=== PATIENT | male | born 1990 | race Hispanic/Latino ===

== ENCOUNTER 2020-08-19 12:21 | Emergency (ER) | payer BC, OTHER ==
[2020-08-19] MEDS ORDERED: MECLIZINE HCL 25 MG TABLET ONE ×2 (12:33→12:36)
[2020-08-19 12:48] LABS: BASOPHILS % (AUTO) 0.4 % (0.0-5.0); EOSINOPHILS % (AUTO) 1.3 % (0.0-8.0); LYMPHOCYTES % (AUTO) 21.2 % (21.0-51.0); MEAN CORPUSCULAR HEMOGLOBIN 27.6 pg (27.0-33.0); MEAN CORPUSCULAR HGB CONC 33.8 g/dL (32.0-36.0); MEAN CORPUSCULAR VOLUME 81.6 fL (79-99); NEUTROPHILS % (AUTO) 68.5 % (40.0-77.0); PLATELET COUNT (AUTO) 280 K/uL (130-400); RED BLOOD CELL COUNT(AUTO) 5.88 MIL/uL (4.50-6.20); RED CELL DISTRIBUTION WIDTH 12.4 % (11.0-15.5); WHITE BLOOD COUNT (AUTO) 10.3 K/uL (4.8-10.8)
[2020-08-19 12:55] LABS: CREATININE 1.1 mg/dL (0.5-1.5); POTASSIUM 3.5 mmol/L (3.5-5.1)
[2020-08-19 13:04] LABS: APPEARANCE,URINE Clear (CLEAR); BILIRUBIN,URINE Negative (NEGATIVE); COLOR,URINE Yellow (YELLOW); GLUCOSE, URINE (UA) Negative (NEGATIVE); KETONES,URINE Negative (NEGATIVE); LEUKOCYTE ESTERASE ,URINE Negative (NEGATIVE); NITRATE,URINE Negative (NEGATIVE); OCCULT BLOOD,URINE Negative (NEGATIVE); PH,URINE 6.5 (5.0-8.0); PROTEIN,URINE Negative (NEGATIVE); UROBILINOGEN,URINE 0.2 mg/dL (0.2-1.0)
[2020-08-19 13:05] LABS: ALBUMIN 4.1 g/dL (3.5-5.0); BILIRUBIN,TOTAL 0.6 mg/dL (0.2-1.0); TOTAL PROTEIN, SERUM 8.1 g/dL (6.0-8.3)
== END 2020-08-19 13:46 | disposition home or self-care (01) ==
LOC: EDH 12:21
DX: R42 Dizziness and giddiness (principal); H61.23 Impacted cerumen, bilateral; I10 Essential (primary) hypertension
CPT/HCPCS: 36415; 71045; 80053; 81003; 84484; 85025; 87804; 93005

== ENCOUNTER 2023-04-27 09:44 | Emergency (ER) | payer BC ==
[~2023-04-27] VITALS: Ht 175.3 cm; Wt 108.9 kg
[2023-04-27 09:49] VITALS: BP 133/67; PULSE 83; RESP 16; O2SAT 100
[2023-04-27 09:57] LABS: APPEARANCE,URINE CLEAR (CLEAR); BILIRUBIN,URINE NEGATIVE (NEGATIVE); COLOR,URINE YELLOW (YELLOW); GLUCOSE, URINE (UA) NEGATIVE (NEGATIVE); KETONES,URINE NEGATIVE (NEGATIVE); LEUKOCYTE ESTERASE ,URINE 250 Leu/uL (NEGATIVE); NITRATE,URINE NEGATIVE (NEGATIVE); PROTEIN,URINE 20 mg/dL (NEGATIVE); UROBILINOGEN,URINE 0.2 mg/dL (0.2-1.0)
[2023-04-27 10:00] LABS: ADD UA MICROSCOPIC YES
[2023-04-27 10:11] LABS: BACTERIA,URINE FEW /HPF (None Seen); MUCUS,URINE RARE LPF (None Seen); WBC,URINE 51-100 /HPF (0-1)
[2023-04-27] MEDS ORDERED: DOXY100C5 PO (10:29)
[2023-04-27] MEDS ORDERED: CICL15CR15 TP (10:30)
[2023-04-27] MEDS ORDERED: CEFTRIAXONE 1G VIAL IM ONE (10:30)
[2023-04-28] MEDS ORDERED: AZIT250T9 PO (15:10)
[2023-04-28] MEDS ORDERED: CETI10TA87 PO (15:12)
== END 2023-04-27 10:43 | disposition home or self-care (01) ==
LOC: EDH 09:44
DX: N39.0 Urinary tract infection, site not specified (principal); L29.9 Pruritus, unspecified; I10 Essential (primary) hypertension
CPT/HCPCS: 99284; 87088; 87797; 87486; 81001; 96372; J0696

== ENCOUNTER 2023-04-28 13:19 | Emergency (ER) | payer BC ==
[~2023-04-28] VITALS: Ht 175.3 cm; Wt 108.9 kg
[~2023-04-28 13:19] MED LIST: CICL15CR15 TP; DOXY100C5 PO
[2023-04-28 13:45] VITALS: BP 150/90; PULSE 61; RESP 16; O2SAT 99
[2023-04-28 14:47] LABS: APPEARANCE,URINE CLEAR (CLEAR); BILIRUBIN,URINE NEGATIVE (NEGATIVE); COLOR,URINE COLORLESS (YELLOW); GLUCOSE, URINE (UA) NEGATIVE (NEGATIVE); KETONES,URINE NEGATIVE (NEGATIVE); LEUKOCYTE ESTERASE ,URINE 75 Leu/uL (NEGATIVE); NITRATE,URINE NEGATIVE (NEGATIVE); OCCULT BLOOD,URINE NEGATIVE (NEGATIVE); PROTEIN,URINE NEGATIVE (NEGATIVE); UROBILINOGEN,URINE 0.2 mg/dL (0.2-1.0)
[2023-04-28 14:55] LABS: ADD UA MICROSCOPIC YES
[2023-04-28 14:59] LABS: BACTERIA,URINE RARE /HPF (None Seen); MUCUS,URINE RARE LPF (None Seen)
[2023-04-28] MEDS ORDERED: AZIT250T9 PO (15:10)
[2023-04-28] MEDS ORDERED: CETI10TA87 PO (15:12)
== END 2023-04-28 15:20 | disposition home or self-care (01) ==
LOC: EDH 13:19
DX: N39.0 Urinary tract infection, site not specified (principal); I10 Essential (primary) hypertension; Z20.2 Contact with and (suspected) exposure to infections with a predominantly sexual mode of transmission
CPT/HCPCS: 81001; 87486; 87797

== ENCOUNTER 2023-05-27 17:30 | Emergency (ER) | payer BC ==
[~2023-05-27] VITALS: Ht 177.8 cm; Wt 114.3 kg
[~2023-05-27 17:30] MED LIST changes: +AZIT250T9 PO; +CETI10TA87 PO
[2023-05-27 20:06] LABS: APPEARANCE,URINE CLEAR (CLEAR); BILIRUBIN,URINE NEGATIVE (NEGATIVE); COLOR,URINE LIGHT-YELLOW (YELLOW); GLUCOSE, URINE (UA) NEGATIVE (NEGATIVE); KETONES,URINE NEGATIVE (NEGATIVE); LEUKOCYTE ESTERASE ,URINE NEGATIVE Leu/uL (NEGATIVE); NITRATE,URINE NEGATIVE (NEGATIVE); OCCULT BLOOD,URINE NEGATIVE (NEGATIVE); PH,URINE 5.5 (5.0-8.0); PROTEIN,URINE NEGATIVE (NEGATIVE); UROBILINOGEN,URINE 0.2 mg/dL (0.2-1.0)
[2023-05-27 20:07] LABS: ADD UA MICROSCOPIC NO
[2023-05-27] MEDS ORDERED: ONDANSETRON ODT 4MG TAB SL ONE (21:00)
[2023-05-27] MEDS ORDERED: CEFTRIAXONE 500MG VIAL IM SCH (21:00)
[2023-05-27] MEDS ORDERED: AZITHROMYCIN 250 MG TABLET PO ONE (21:00)
[2023-05-27 21:27] VITALS: BP 139/74; PULSE 60; RESP 18; O2SAT 99
== END 2023-05-27 22:27 | disposition home or self-care (01) ==
LOC: EDH 17:30
DX: N34.2 Other urethritis (principal); I10 Essential (primary) hypertension; Z79.899 Other long term (current) drug therapy
CPT/HCPCS: 99284; 87797; 87486; 81003; 96372; J0696

== ENCOUNTER 2023-09-20 19:57 | Emergency (ER) | payer BC, OTHER ==
[~2023-09-20] VITALS: Ht 175.3 cm; Wt 114.3 kg
[2023-09-20 20:26] VITALS: BP 121/65; PULSE 74; RESP 18; O2SAT 98
[2023-09-20] MEDS ORDERED: IBUP-2077 PO (20:47)
[2023-09-20] MEDS ORDERED: CLIN-141 PO (20:47)
[2023-09-20] MEDS: CLINDAMYCIN 150 MG CAP PO ONE (20:57)
[2023-09-20] MEDS: IBUPROFEN 800 MG TAB PO ONE (20:58)
== END 2023-09-20 21:03 | disposition home or self-care (01) ==
LOC: EDH 19:57
DX: K02.9 Dental caries, unspecified (principal); I10 Essential (primary) hypertension; Z79.899 Other long term (current) drug therapy

== ENCOUNTER 2024-02-27 15:57 | Emergency (ER) | payer BC ==
[~2024-02-27] VITALS: Ht 175.3 cm; Wt 111.6 kg
[~2024-02-27 15:57] MED LIST changes: +CLIN-141 PO; +IBUP-2077 PO
[2024-02-27 17:08] LABS: APPEARANCE,URINE CLEAR (CLEAR); BILIRUBIN,URINE NEGATIVE (NEGATIVE); COLOR,URINE LIGHT-YELLOW (YELLOW); GLUCOSE, URINE (UA) NEGATIVE (NEGATIVE); KETONES,URINE NEGATIVE (NEGATIVE); LEUKOCYTE ESTERASE ,URINE NEGATIVE Leu/uL (NEGATIVE); NITRATE,URINE NEGATIVE (NEGATIVE); OCCULT BLOOD,URINE NEGATIVE (NEGATIVE); PROTEIN,URINE NEGATIVE (NEGATIVE); UROBILINOGEN,URINE 0.2 mg/dL (0.2-1.0)
[2024-02-27 17:10] LABS: ADD UA MICROSCOPIC NO
[2024-02-27] MEDS: cefTRIAXone 1G VIAL IM ONE (18:03)
[2024-02-27] MEDS: AZITHROMYCIN 250 MG TABLET PO ONE (18:03)
[2024-02-27 19:08] VITALS: BP 158/85; PULSE 80; RESP 16; TEMP 97.8; O2SAT 97
== END 2024-02-27 19:16 | disposition home or self-care (01) ==
LOC: EDH 15:57
DX: N43.3 Hydrocele, unspecified (principal); R10.30 Lower abdominal pain, unspecified; I10 Essential (primary) hypertension; Z79.899 Other long term (current) drug therapy; Z88.1 Allergy status to other antibiotic agents
CPT/HCPCS: 99284; 87491; 87591; 81003; 76870; 96372; J0696

== ENCOUNTER 2025-02-13 13:12 | Emergency (ER) | payer BC ==
[~2025-02-13] VITALS: Ht 177.8 cm; Wt 112.5 kg
[~2025-02-13 13:12] MED LIST changes: +ATEN25TA PO; -AZIT250T9 PO; -CETI10TA87 PO; -CICL15CR15 TP; -CLIN-141 PO; -DOXY100C5 PO; -IBUP-2077 PO; +LEVO-70 PO; +LISI1TAB49 PO; +SERT-439 PO
[2025-02-13 14:09] LABS: APPEARANCE,URINE CLEAR (CLEAR); GLUCOSE, URINE (UA) NEGATIVE (NEGATIVE); LEUKOCYTE ESTERASE ,URINE NEGATIVE Leu/uL (NEGATIVE); NITRATE,URINE NEGATIVE (NEGATIVE); OCCULT BLOOD,URINE +- (TRACE) (NEGATIVE)
[2025-02-13 14:14] LABS: ADD UA MICROSCOPIC YES
--- NOTE | 2025-02-13 14:41 | ERN ---
ED Note History of Present Illness Stated Complaint: LT TESTICULAR PAIN Chief Complaint: Testicular Injury/Pain Time Seen by MD: 13:13 Time Seen by Midlevel: 13:18 Dictation: 35-YEAR-OLD MALE WITH NO PAST MEDICAL HISTORY COMING IN WITH COMPLAINTS OF LEFT TESTICULAR PAIN FOR ONE WEEK. PATIENT STATES HE WAS SEEN WHEN THE PAIN STARTED ONE WEEK AGO AT [facility] AND THEY GAVE HIM IM SHOT AND P.O. ANTIBIOTICS TO TREAT ANY STDS. STATES HE IS STILL CONTINUES WITH THE PAIN. DENIES ANY FEVER, NAUSEA, VOMITING, NO PENILE DISCHARGE, NO PENILE LESIONS, NO DYSURIA. Allergies: Coded Allergies: doxycycline (Unverified Allergy, Unknown, 02/27/24) Home Meds Active Scripts Levofloxacin (Levofloxacin) 500 Mg Tablet, 1 TAB PO DAILY for 7 Days, #7 TAB 0 Refills Prov:KEVINRASHAUN SOLO QUARRY MANAGER 05/11/24 Reported Medications Sertraline HCl (Sertraline HCl) 50 Mg Tablet, 1.5 TAB PO DAILY for anxiety 05/10/24 Lisinopril/Hydrochlorothiazide (Lisinopril-Hctz 10-12.5 mg Tab) 10 Mg-12.5 Mg Tablet, 1 TAB PO DAILY 05/10/24 Atenolol (Atenolol) 25 Mg Tablet, 1 TAB PO DAILY 05/10/24 Past Medical History Past Medical History: Hypertension, Other Additional Past Medical Hx: GASTROENTERITIS Surgical History: None Family History: Negative Social History: Negative Review of System Dictation CONSTITUTIONAL: NEGATIVE FOR FEVER,CHILLS, AND WEIGHT LOSS EYES: NEGATIVE FOR INJURY, PAIN,REDNESS, AND DISCHARGE ENT: NEGATIVE FOR INJURY,PAIN OR SWELLING CARDIOVASCULAR: NEGATIVE FOR CHEST PAIN, PALPITATIONS, AND EDEMA RESPIRATORY: NEGATIVE FOR SHORTNESS OF BREATH, COUGH, AND WHEEZING, ABDOMEN/GI: NEGATIVE FOR ABDOMINAL PAIN, NAUSEA, VOMITING, DIARRHEA, AND CONST IPATION BACK: NEGATIVE FOR INJURY AND PAIN : COMPLAINING OF LEFT TESTICULAR PAIN MS/EXTREMITY: NEGATIVE FOR INJURY AND DEFORMITY SKIN: NEGATIVE FOR RASH, AND DISCOLORATION NEURO: NEGATIVE FOR HEADACHE, WEAKNESS, NUMBNESS, TINGLING, AND SEIZURE PSYCH: NEGATIVE FOR SUICIDE IDEATION, HOMICIDAL IDEATION, AND HALLUCINATIONS Review of Systems: was completed Initial Vital Sign VS Vital Signs Date Time Temp Pulse Resp B/P (MAP) Pulse Ox O2 Delivery O2 Flow Rate FiO2 02/13/25 13:13 98.4 87 16 136/66 99 Room Air 0 02/13/25 13:45 21 Physical Exam Dictation GENERAL: AWAKE, ALERT, NAD HEAD/FACE: NORMOCEPHALIC, ATRAUMATIC EYES: PERRL, EOMI, VISION AT BASELINE ENT: ORAL CAVITY CLEAR, TMS CLEAR, NO SIGNS OF INFECTION NECK: TRACHEA MIDLINE, SUPPLE, NO NUCHAL RIGIDITY CARDIOVASCULAR: RRR, NORMAL S1/S2, NO MRGS, NO JVD RESPIRATORY: CTAB, NO RESPIRATORY DISTRESS, NO RALES OR WHEEZES ABDOMEN: SOFT, NON-TENDER, NON-DISTENDED, NORMAL BOWEL SOUNDS, NO GUARDING OR REBOUND. SKIN: WARM, DRY, NORMAL TURGOR, NO RASH MS/EXTREMITY: PULSES EQUAL, NO CYANOSIS, NEUROVASCULAR INTACT, FROM NEURO: COAX4, GCS 15, STRENGTH 5/5, CN 2-12 INTACT, NORMAL CEREBELLAR EXAM, NORMAL GAIT, PSYCH: NORMAL BEHAVIOR, MOOD, AND AFFECT NORMAL Results (Laboratory/Radiology) Laboratory/Radiology Laboratory Tests Test 02/13/25 13:38 Urine Color LIGHT-YELLOW (YELLOW) Urine Appearance CLEAR (CLEAR) Urine pH 6.5 (5.0-8.0) Urine Specific [place] 1.022 (1.001-1.031) Urine Protein NEGATIVE mg/dL (NEGATIVE) Urine Glucose (UA) NEGATIVE mg/dL (NEGATIVE) Urine Ketones NEGATIVE mg/dL (NEGATIVE) Urine Occult Blood +- (TRACE) (NEGATIVE) H Urine Nitrate NEGATIVE (NEGATIVE) Urine Bilirubin NEGATIVE mg/dL (NEGATIVE) Urine Urobilinogen 0.2 mg/dL (0.2-1.0) Urine Leukocyte Esterase NEGATIVE Evelin/uL Urine RBC 0-1 /HPF (0-1) Urine WBC 0-1 /HPF (0-1) Urine Bacteria None Seen /HPF (None Seen) Labs Reviewed?: Yes ED Course ED Course Orders Procedure Category Date Status Time Urinalysis Profile LAB 02/13/25 Complete 13:25 Chlamydia & Gc Pcr SNEHA 02/13/25 In Process 13:25 Us Scrotum & Contents US 02/13/25 Taken 13:25 Vital Signs Date Time Temp Pulse Resp B/P (MAP) Pulse Ox O2 Delivery O2 Flow Rate FiO2 02/13/25 13:45 82 18 141/79 97 Room Air* 0 21 02/13/25 13:13 98.4 87 16 136/66 99 Room Air 0 Medical Decision Making MDM MDM: 35-YEAR-OLD MALE WITH NO PAST MEDICAL HISTORY COMING IN WITH COMPLAINTS OF LEFT TESTICULAR PAIN FOR ONE WEEK. PATIENT STATES HE WAS SEEN WHEN THE PAIN STARTED ONE WEEK AGO AT [facility] AND THEY GAVE HIM IM SHOT AND P.O. ANTIBIOTICS TO TREAT ANY STDS. STATES HE IS STILL CONTINUES WITH THE PAIN. DENIES ANY FEVER, NAUSEA, VOMITING, NO PENILE DISCHARGE, NO PENILE LESIONS, NO DYSURIA. UA SHOWS NO EVIDENCE OF URINARY TRACT INFECTION. PRELIMINARY REPORT SHOWS BILA TERAL HOMOGENEOUS TESTICLES, WITH NORMAL FLOW. THERE IS A LEFT HYDROCELE. DISCUSSED FINDINGS WITH THE PATIENT. EDUCATED PATIENT THAT HE NEEDS TO FOLLOW UP WITH THE UROLOGIST THOUGHT PATIENT, WHERE APPROPRIATE UNDERWEAR TO HELP SUPPORT THE TESTICLES. EDUCATED ON SIGNS AND SYMPTOMS OF WHEN TO RETURN BACK TO THE ER. PATIENT VERBALIZED UNDERSTANDING, ANSWERED ALL QUESTIONS. DIFFERENTIAL DIAGNOSIS: STD, UTI, ORCHITIS, EPIDIDYMITIS RATIONALE: TESTS CONSIDERED AND ORDERED SECONDARY TO SHARED DECISION MAKING INCLUDE: PREVIOUS OUTSIDE RECORDS REVIEWED: OLD ER VISITS. RISK OF COMPLICATION AND/OR MORBIDITY OR MORTALITY OF PATIENT MANAGEMENT: NONE MEDICATIONS-PER MEDICATION RECONCILIATION NEED FOR HOSPITALIZATION: PATIENT DOES NOT MEET CRITERIA FOR HOSPITALIZATION. NEED FOR EMERGENCY MAJOR/MINOR SURGERY: NO THERE ARE NO SOCIAL CONCERNS WITH THIS PATIENT. PRESCRIPTION DRUG MANAGEMENT PRESCRIPTIONS WILL INCLUDE SYMPTOMATIC CARE PATIENT'S PRIOR EXTERNAL MEDICAL RECORDS FROM OTHER ER VISITS WERE REVIEWED BY ME INDICATED. PRIOR TESTING AND RESULTS FROM PREVIOUS VISITS WERE REVIEWED. PRIOR TESTS WERE TAKEN INTO ACCOUNT WITH MEDICAL DECISION MAKING AND RESOURCE UTILIZATION, INDEPENDENT HISTORIAN/HISTORIANS WERE USED TO OBTAIN COMPLETE MEDICAL HISTORY. I INDEPENDENTLY INTERPRETED THE TEST THAT WERE PERFORMED, RESULTS WERE REVIEWED BY ME AND CONSIDERED FINDINGS ON RADIOLOGY IF ORDERED. MEDICAL MANAGEMENT AND EXAMINATION INTERPRETATION DISCUSSIONS WERE HAD BY ME WITH OTHER QUALIFIED HEALTHCARE PROFESSIONALS INDICATED FOR THE PATIENT'S CARE. DX & DISP Disposition: Discharge Departure Impression: Primary Impression: Left hydrocele Condition: Stable Additional Instructions: WEAR MORE SUPPORTIVE UNDERWEAR TO SUPPORT AND HELP WITH THE SWELLING OF YOUR LEFT TESTICLE. FOLLOW UP WITH THE UROLOGIST OUTPATIENT. RETURN TO THE HOSPITAL IF YOU HAVE ANY WORSENING SYMPTOMS. Referrals: TESS CARMEN PA-C (PCP) Time of Disposition: 14:40 I have reviewed the case, and I agree with, Diagnosis and Plan PRO STEVENS NP Feb 13, 2025 14:41
[2025-02-13 14:50] VITALS: BP 128/62; PULSE 82; RESP 18; TEMP 98.4; O2SAT 99
--- NOTE | 2025-02-13 14:55 | HMCIMG ---
EXAM: US Scrotum. CLINICAL HISTORY: Left testicle pain TECHNIQUE: Real-time ultrasound of the scrotum with color Doppler and image documentation. COMPARISON: US Scrotum Dated 02/27/24 FINDINGS: RIGHT TESTICLE: Normal in size and echogenicity, no abnormal mass. Normal Doppler flow. LEFT TESTICLE: Normal in size and echogenicity, no abnormal mass. Normal Doppler flow. EPIDIDYMIDES: The epididymes are normal in size and demonstrate Doppler flow within normal limits. SCROTUM: Small left sided hydrocele. No varicocele or extratesticular mass seen. IMPRESSION: 1. No acute intrascrotal pathology. /Morris
== END 2025-02-13 14:54 | disposition home or self-care (01) ==
LOC: EDH 13:12
DX: N43.3 Hydrocele, unspecified (principal); I10 Essential (primary) hypertension; Z79.899 Other long term (current) drug therapy; Z88.1 Allergy status to other antibiotic agents
CPT/HCPCS: 76870; 81001; 87491; 87591; 99284